=== PATIENT | male | born 1990 | race Two or more races ===

== ENCOUNTER 2016-05-28 01:05 | Emergency (ER) | payer BC, MEDICAID ==
[2016-05-28 01:10] VITALS: RESP 16; O2SAT 95
[2016-05-28] MEDS ORDERED: NS 1,000 ML IV ONE (01:32)
[2016-05-28] MEDS ORDERED: ONDANSETRON 4 MG/2 ML VIAL IVP ONE (01:35)
--- NOTE | 2016-05-28 01:35 | EDPHY ---
H & P Stated Complaint: N and V and D since this am Time Seen by Provider: 05/28/16 01:30 HPI/ROS: CHIEF COMPLAINT: Vomiting and diarrhea HISTORY OF PRESENT ILLNESS: The patient is a 25-year-old man who comes to the emergency department complaining of vomiting and diarrhea with blood tinged vomit. He has a history of GERD and peptic ulcer disease. He states that it improved when he is to take antacids but that he no longer does. His son was sick with a GI infection a few days ago. Today this patient began having vomiting and diarrhea. No fever, no abdominal pain. Classifies symptoms is moderate. REVIEW OF SYSTEMS: Constitutional: denies: chills, fever, recent illness, recent injury EENTM: denies: blurred vision, double vision, nose congestion Respiratory: denies: cough, shortness of breath Cardiac: denies: chest pain, irregular heart rate, lightheadedness, palpitations Gastrointestinal/Abdominal: See HPI Genitourinary: denies: dysuria, frequency, hematuria, pain Musculoskeletal: denies: joint pain, muscle pain Skin: denies: lesions, rash, jaundice, bruising Neurological: denies: headache, numbness, paresthesia, tingling, dizziness, weakness Hematologic/Lymphatic: denies: blood clots, easy bleeding, easy bruising Immunologic/allergic: denies: HIV/AIDS, transplant EXAM: GENERAL: Well-appearing, well-nourished and in no acute distress. HEAD: Atraumatic, normocephalic. EYES: Pupils equal round and reactive to light, extraocular movements intact, sclera anicteric, conjunctiva are normal. ENT: TMs normal, nares patent, oropharynx clear without exudates. Moist mucous membranes. NECK: Normal range of motion, supple without lymphadenopathy or JVD. LUNGS: Breath sounds clear to auscultation bilaterally and equal. No wheezes rales or rhonchi. HEART: Regular rate and rhythm without murmurs, rubs or gallops. ABDOMEN: Soft, nontender, normoactive bowel sounds. No guarding, no rebound. No masses appreciated. BACK: No CVA tenderness, no spinal tenderness, step-offs or deformities EXTREMITIES: Normal range of motion, no pitting or edema. No clubbing or cyanosis. NEUROLOGICAL: Cranial nerves II through XII grossly intact. Normal speech, normal gait. 5/5 strength, normal movement in all extremities, normal sensation PSYCH: Normal mood, normal affect. SKIN: Warm, dry, normal turgor, no visible rashes or lesions. Source: Patient Exam Limitations: No limitations - Personal History Current Tetanus/Diphtheria Vaccine: Yes Current Tetanus Diphtheria and Acellular Pertussis (TDAP): Yes Tetanus Vaccine Date: 2012 - Medical/Surgical History Hx Asthma: Yes Hx Chronic Respiratory Disease: No Hx Diabetes: No Hx Cardiac Disease: No Hx Renal Disease: No Hx Cirrhosis: No Hx Alcoholism: No Hx HIV/AIDS: No Other PMH: asthma, knee surgery when 17, tonsils and adenoids and tubes in ears when he was a baby, stomach ulcer - Family History Significant Family History: No pertinent family hx - Social History Smoking Status: Former smoker Alcohol Use: Sober Drug Use: None Constitutional: Initial Vital Signs Temperature (C) 36.8 C 05/28/16 01:08 Heart Rate 96 05/28/16 01:08 Respiratory Rate 16 05/28/16 01:08 Blood Pressure 137/85 H 05/28/16 01:08 O2 Sat (%) 95 05/28/16 01:08 O2 Delivery Mode Room Air Allergies/Adverse Reactions: No Known Allergies Allergy (Verified 05/28/15 10:42) Home Medications: Medication Instructions Recorded Famotidine [Pepcid 20 MG (OTC)] 20 mg PO BID #30 tab 05/28/16 Ondansetron Odt [Zofran Odt 4 mg 4 mg PO Q4 PRN #20 tab 05/28/16 (RX)] Medical Decision Making ED Course/Re-evaluation: 3:20 a.m. the patient is not having any further symptoms. I will discharge him with antiemetics. He understands and agrees with this plan. Differential Diagnosis: Partial list of the Differential diagnosis considered include but were not limited to; gastritis, food poisoning and although unlikely based on the history and physical exam, I also considered appendicitis, diverticulitis, peptic ulcer disease. I discussed these differential diagnoses and the plan with the patient as well as the usual and expected course. The patient understands that the diagnosis is provisional and that in medicine we are not always correct and that further workup is often warranted. Usual and customary warnings were given. All of the patient's questions were answered. The patient was instructed to return to the emergency department should the symptoms at all worsen or return, otherwise to followup with the physician as we discussed. - Data Points Medications Given: Discontinued Medications Sodium Chloride (Ns) 1,000 mls @ 0 mls/hr IV ONCE ONE PRN Reason: Wide Open Stop: 05/28/16 01:33 Last Admin: 05/28/16 01:33 Dose: 1,000 mls Departure - Departure Disposition: Home, Routine, Self-Care Clinical Impression: Peptic ulcer disease Vomiting Qualifiers: Vomiting type: unspecified Vomiting Intractability: non-intractable Nausea presence: with nausea Qualified Code(s): R11.2 - Nausea with vomiting, unspecified Diarrhea Qualifiers: Diarrhea type: unspecified type Qualified Code(s): R19.7 - Diarrhea, unspecified Condition: Good Instructions: Acute Nausea and Vomiting (ED), Peptic Ulcer (ED) Referrals: Saturnino Sawyer, [Medical Doctor] - As per Instructions Prescriptions: Famotidine [Pepcid 20 MG (OTC)] 20 mg PO BID #30 tab Ondansetron Odt [Zofran Odt 4 mg (RX)] 4 mg PO Q4 PRN #20 tab PRN Reason: Nausea & Vomiting
[2016-05-28] MEDS ORDERED: FAMOTIDINE 20 MG/NACL 50 ML IV ONE (01:36)
[2016-05-28] MEDS ORDERED: FAMOTIDINE 20 MG/2 ML SDV IVP ONE (02:14)
[2016-05-28] MEDS ORDERED: ONDANSETRON 4MG PREPACK#2 BTL TAKEHOME ONE (03:25)
[2016-05-28 03:39] VITALS: BP 106/71; PULSE 66; TEMP 98.1
== END 2016-05-28 03:39 | disposition home or self-care (01) ==
DX: R19.7 Diarrhea, unspecified (principal); K27.9 Peptic ulcer, site unspecified, unspecified as acute or chronic, without hemorrhage or perforation; R11.2 Nausea with vomiting, unspecified; J45.909 Unspecified asthma, uncomplicated; Z87.891 Personal history of nicotine dependence
CPT/HCPCS: 96374; J2405

== ENCOUNTER 2016-05-30 07:40 | Emergency (ER) | payer SELFPAY ==
--- NOTE | 2016-05-30 07:48 | EDPHY ---
H & P Time Seen by Provider: 05/30/16 07:48 HPI/ROS: CHIEF COMPLAINT: Abdominal pain and vomiting HISTORY OF PRESENT ILLNESS: Patient was here with similar symptoms 2 days ago. He says he felt a little bit better but then symptoms reoccurred yesterday and or much worse this morning at 5:00 a.m.. He describes epigastric pain which is severe and does not radiate. It is associated with black stools and vomiting coffee-grounds. His unable to eat or drink anything for the past 12- 24 hours. Worse with oral intake. REVIEW OF SYSTEMS: Eye: no change in vision ENT: no sore throat Cardiac: no chest pain or syncope Pulmonary: no cough or SOB Abdomen: HPI Musculoskeletal: no back pain Skin: no rash Neuro: no headache Constitutional: no fever : no urinary symptoms A comprehensive 10 point review of systems is otherwise negative aside from elements mentioned in the history of present illness. PAST MEDICAL HISTORY: [facility] emergency department visit dated 05/28/2016 personally reviewed. Presented with vomiting and diarrhea was treated symptomatically and discharged with Pepcid. Discharge summary from Dr. Eric dated 05/30/2015 personally reviewed. Acute GI bleed from erosive gastritis with small antral ulceration. Social history: Regular marijuana, no tobacco, does drink alcohol. General Appearance: Alert and conversant, cooperative. Eyes: No scleral icterus. ENT, Mouth: Dry mucous membranes Respiratory: Normal respiratory effort, breath sounds equal, lungs are clear to auscultation. Cardiovascular: Regular rate and rhythm. Gastrointestinal: Epigastric tenderness and some voluntary guarding but no rebound or involuntary guarding. No McBurney's point tenderness. Rectal exam shows dark stool sent for Hemoccult. Neurological: Alert and oriented x3. Normally conversant. Face symmetric, normal movement and sensation in all extremities. Skin: Warm and dry, no rashes. Musculoskeletal: No peripheral edema and no joint swelling. Psychiatric: Moderately anxious. Emergency Department course/MDM: Fentanyl 100 mcg IV and Zofran 4 mg IV. Normal saline 2 L for nausea and vomiting. I-STAT and CT scan to evaluate for perforation given severe pain and tenderness. Labs to include lipase and liver function tests as well as hemoglobin hematocrit and occult blood feces. 815: Creatinine 0.8, CT scanning discussed and consented with the patient. 905: Discussed negative CT results, still having nausea vomiting, doubt GI bleed at this point. Plan for IV Protonix, IV Haldol, GI cocktail. 1155: Feels better, no further vomiting, wants to go home, stable for discharge. Smoking Status: Former smoker Constitutional: Initial Vital Signs Temperature (C) 36.4 C 05/30/16 07:44 Heart Rate 68 05/30/16 07:44 Respiratory Rate 16 05/30/16 07:44 Blood Pressure 133/84 H 05/30/16 07:44 O2 Sat (%) 97 05/30/16 07:44 O2 Delivery Mode Room Air Allergies/Adverse Reactions: No Known Allergies Allergy (Verified 05/30/16 07:43) Home Medications: Medication Instructions Recorded Famotidine [Pepcid 20 MG (OTC)] 20 mg PO BID #30 tab 05/28/16 Ondansetron Odt [Zofran Odt 4 mg 4 mg PO Q4 PRN #20 tab 05/28/16 (RX)] Medical Decision Making - Diagnostics Imaging: Normal abdominal pelvic CT per Dr. Stokes at 8:55 a.m., personally reviewed and interpreted by myself as well. No evidence of perforation. Differential Diagnosis: Differential considered including but not limited to peptic ulcer disease, upper GI bleed, pancreatitis or hepatitis, intestinal or stomach perforation. - Data Points Laboratory Results: Laboratory Results 05/30/16 08:00 05/30/16 08:00 05/30/16 05/30/16 05/30/16 08:00 08:00 07:58 WBC 8.72 10^3/uL 10^3/uL (3.80-9.50) RBC 5.21 10^6/uL 10^6/uL (4.40-6.38) Hgb 16.3 g/dL g/dL (13.7-17.5) POC Hgb 17.3 gm/dL gm/dL (14.5-17.3) Hct 46.3 % % (40.0-51.0) POC Hct 51 % H % (42.8-50.6) MCV 88.9 fL fL (81.5-99.8) MCH 31.3 pg pg (27.9-34.1) MCHC 35.2 g/dL g/dL (32.4-36.7) RDW 12.3 % % (11.5-15.2) Plt Count 182 10^3/uL 10^3/uL (150-400) MPV 10.4 fL fL (8.7-11.7) Neut % (Auto) 86.4 % H % (39.3-74.2) Lymph % (Auto) 5.4 % L % (15.0-45.0) [place] % (Auto) 7.8 % % (4.5-13.0) Eos % (Auto) 0.0 % L % (0.6-7.6) Baso % (Auto) 0.2 % L % (0.3-1.7) Nucleat RBC Rel Count 0.0 % % (0.0-0.2) Absolute Neuts (auto) 7.53 10^3/uL H 10^3/uL (1.70-6.50) Absolute Lymphs (auto) 0.47 10^3/uL L 10^3/uL (1.00-3.00) Absolute Monos (auto) 0.68 10^3/uL 10^3/uL (0.30-0.80) Absolute Eos (auto) 0.00 10^3/uL L 10^3/uL (0.03-0.40) Absolute Basos (auto) 0.02 10^3/uL 10^3/uL (0.02-0.10) Absolute Nucleated RBC 0.00 10^3/uL 10^3/uL (0-0.01) Immature Gran % 0.2 % % (0.0-1.1) Immature Gran # 0.02 10^3/uL 10^3/uL (0.00-0.10) POC Sodium 141 mEq/L mEq/L (134-144) Sodium 141 mEq/L mEq/L (134-144) POC Potassium 3.1 mEq/L L mEq/L (3.3-5.0) Potassium 3.3 mEq/L L mEq/L (3.5-5.2) POC Chloride 100 mEq/L mEq/L (96-108) Chloride 102 mEq/L mEq/L (97-110) Carbon Dioxide 24 mEq/l mEq/l (22-31) Anion Gap 15 mEq/L mEq/L (8-16) POC BUN 24 mg/dL H mg/dL (7-23) BUN 23 mg/dL mg/dL (7-23) Creatinine 0.9 mg/dL mg/dL (0.7-1.3) POC Creatinine 0.8 mg/dL mg/dL (0.8-1.5) Estimated GFR > 60 Glucose 113 mg/dL H mg/dL (70-100) POC Glucose 115 mg/dL H mg/dL (70-100) Calcium 9.4 mg/dL mg/dL (8.5-10.4) Total Bilirubin 1.5 mg/dL H mg/dL (0.1-1.4) Conjugated Bilirubin 0.3 mg/dL mg/dL (0.0-0.5) Unconjugated Bilirubin 1.2 mg/dL H mg/dL (0.0-1.1) AST 33 IU/L IU/L (17-59) ALT 44 IU/L IU/L (21-72) Alkaline Phosphatase 110 IU/L IU/L (38-126) Total Protein 7.9 g/dL g/dL (6.3-8.2) Albumin 4.9 g/dL g/dL (3.5-5.0) Lipase 85.0 IU/L IU/L (23-300) Stool Occult Bld Scrn 05/30/16 07:57 WBC RBC Hgb POC Hgb Hct POC Hct MCV MCH MCHC RDW Plt Count MPV Neut % (Auto) Lymph % (Auto) [place] % (Auto) Eos % (Auto) Baso % (Auto) Nucleat RBC Rel Count Absolute Neuts (auto) Absolute Lymphs (auto) Absolute Monos (auto) Absolute Eos (auto) Absolute Basos (auto) Absolute Nucleated RBC Immature Gran % Immature Gran # POC Sodium Sodium POC Potassium Potassium POC Chloride Chloride Carbon Dioxide Anion Gap POC BUN BUN Creatinine POC Creatinine Estimated GFR Glucose POC Glucose Calcium Total Bilirubin Conjugated Bilirubin Unconjugated Bilirubin AST ALT Alkaline Phosphatase Total Protein Albumin Lipase Stool Occult Bld Scrn NEGATIVE (NEGATIVE) Medications Given: Discontinued Medications Al Hydroxide/Mg Hydroxide (Maalox Susp) 30 ml PO ONCE ONE Stop: 05/30/16 09:12 Last Admin: 05/30/16 09:55 Dose: 30 ml Fentanyl (Sublimaze) 100 mcg IVP EDNOW ONE Stop: 05/30/16 07:57 Last Admin: 05/30/16 08:08 Dose: 100 mcg Haloperidol Lactate (Haldol Injection) 2.5 mg IV EDNOW ONE Stop: 05/30/16 09:12 Last Admin: 05/30/16 09:48 Dose: 2.5 mg Hyoscyamine Sulfate (Levsin, Hyomax-Sl) 0.25 mg PO ONCE ONE Stop: 05/30/16 09:12 Last Admin: 05/30/16 09:55 Dose: 0.25 mg Sodium Chloride (Ns) 1,000 mls @ 0 mls/hr IV ONCE ONE PRN Reason: Wide Open Stop: 05/30/16 07:57 Last Admin: 05/30/16 08:07 Dose: 1,000 mls Famotidine/Sodium Chloride (Pepcid 20 Mg (Premix)) 50 mls @ 200 mls/hr IV EDNOW ONE Stop: 05/30/16 09:25 Last Admin: 05/30/16 09:48 Dose: 50 mls Lidocaine (Lidocaine 2% Viscous) 15 ml PO ONCE ONE Stop: 05/30/16 09:12 Last Admin: 05/30/16 09:55 Dose: 15 ml Ondansetron HCl (Zofran) 4 mg IVP EDNOW ONE Stop: 05/30/16 07:57 Last Admin: 05/30/16 08:07 Dose: 4 mg Point of Care Test Results: 05/30/16 07:58 POC Sodium 141 POC Potassium 3.1 L POC Chloride 100 POC BUN 24 H POC Creatinine 0.8 POC Glucose 115 H Departure - Departure Disposition: Home, Routine, Self-Care Clinical Impression: Nausea & vomiting Qualifiers: Vomiting type: unspecified Vomiting Intractability: non-intractable Qualified Code(s): R11.2 - Nausea with vomiting, unspecified Abdominal pain Qualifiers: Abdominal location: generalized Qualified Code(s): R10.84 - Generalized abdominal pain Condition: Good Instructions: Acute Abdominal Pain (ED) Referrals: Bryan Villalobos MD [Medical Doctor] - As per Instructions
[2016-05-30] MEDS ORDERED: fentaNYL 100 MCG/2 ML INJ IVP ONE (07:56)
[2016-05-30] MEDS ORDERED: NS 1,000 ML IV ONE (07:56)
[2016-05-30] MEDS ORDERED: ONDANSETRON 4 MG/2 ML VIAL IVP ONE (07:56)
[2016-05-30 08:11] LABS: % IMMATURE GRANULYOCYTES 0.2 % (0.0-1.1); ABSOLUTE IMMATURE GRANULOCYTES 0.02 10^3/uL (0.00-0.10); ADD DIFF? NO; ADD MORPH? NO; ADD SCAN? NO; ATYPICAL LYMPHOCYTE FLAG 0 (0-99); FRAGMENT RBC FLAG 0 (0-99); HEMATOCRIT 46.3 % (40.0-51.0); HEMOGLOBIN 16.3 g/dL (13.7-17.5); LEFT SHIFT FLG 0 (0-99); LIPEMIA HEMOLYSIS FLAG 90 (0-99); MEAN CELL HEMOGLOBIN 31.3 pg (27.9-34.1); MEAN CELL HEMOGLOBIN CONCENTR. 35.2 g/dL (32.4-36.7); MEAN CELL VOLUME 88.9 fL (81.5-99.8); MEAN PLATELET VOLUME 10.4 fL (8.7-11.7); PLATELET CLUMPS FLAG 20 (0-99); PLATELET COUNT 182 10^3/uL (150-400); RED BLOOD CELL COUNT 5.21 10^6/uL (4.40-6.38); RED CELL DISTRIBUTION WIDTH 12.3 % (11.5-15.2)
[2016-05-30] MEDS ORDERED: IOPAMIDOL (ISOVUE-300) 100 ML BTL IV ONE (08:18)
[2016-05-30 08:32] LABS: ALANINE AMINOTRANSFERASE 44 IU/L (21-72); ALBUMIN 4.9 g/dL (3.5-5.0); ALKALINE PHOSPHATASE 110 IU/L (38-126); ANION GAP 15 mEq/L (8-16); ASPARTATE AMINOTRANSFERASE 33 IU/L (17-59); BILIRUBIN,TOTAL 1.5 mg/dL (0.1-1.4); BILIRUBIN-CONJUGATED 0.3 mg/dL (0.0-0.5); BILIRUBIN-UNCONJUGATED 1.2 mg/dL (0.0-1.1); CALCIUM 9.4 mg/dL (8.5-10.4); CARBON DIOXIDE 24 mEq/l (22-31); CHLORIDE 102 mEq/L (97-110); CREATININE 0.9 mg/dL (0.7-1.3); GLOMERULAR FILTRATION RATE > 60; GLUCOSE 113 mg/dL (70-100); POTASSIUM 3.3 mEq/L (3.5-5.2); SODIUM 141 mEq/L (134-144); TOTAL PROTEIN 7.9 g/dL (6.3-8.2)
[2016-05-30] MEDS ORDERED: LIDOCAINE 2% VISCOUS 15 ML UDCUP PO ONE (09:11)
[2016-05-30] MEDS ORDERED: FAMOTIDINE 20 MG/NACL 50 ML IV ONE (09:11)
[2016-05-30] MEDS ORDERED: HALOPERIDOL LACT 5 MG/ML INJ IV ONE (09:11)
[2016-05-30] MEDS ORDERED: HYOSCYAMINE SULFATE 0.125 MG TAB PO ONE (09:11)
[2016-05-30] MEDS ORDERED: MAG HYDROX/AL HYDROX/SIMETH 30 ML UDCUP PO ONE (09:11)
[2016-05-30 11:27] VITALS: BP 112/61; PULSE 65; RESP 18; TEMP 98.6; O2SAT 94
== END 2016-05-30 12:10 | disposition home or self-care (01) ==
DX: R10.84 Generalized abdominal pain (principal); R11.2 Nausea with vomiting, unspecified; Z87.891 Personal history of nicotine dependence
CPT/HCPCS: 82947-QW; 96374; J2405; J3010; Q9967

== ENCOUNTER 2016-12-27 14:19 | Emergency (ER) | payer SELFPAY ==
[2016-12-27 14:26] VITALS: RESP 16; O2SAT 97
--- NOTE | 2016-12-27 16:44 | EDPHY ---
H & P Stated Complaint: ETOH/COCAINE DETOX N/V/D Time Seen by Provider: 12/27/16 16:44 HPI/ROS: HPI: This is a 26-year-old male who presents with Chief Complaint: ETOH/COCAINE DETOX N/V/D Location: Epigastric Quality: Nausea and vomiting Duration: Since Monday Signs and Symptoms: no fever, + nausea, + vomiting, no hematemesis, no blood in stool, no abdominal bloating, no diarrhea, no back pain, no urinary symptoms, no testicular/groin pain, no indigestion, no chest pain, no shortness of breath Timing: Sudden, intermittent episodes Severity: Moderate Context: Patient has a history alcoholic gastritis but is not taking his Pepcid as prescribed presents with complaints of continued nausea and vomiting 2 -3 times per day as well as inability to eat since Monday. Monday he broke up with his girlfriend and per him went on a [place] consisting of large amounts of liquor and inhalation of cocaine until late Monday night/early Monday morning. Patient reports that he has not eaten or drank anything since Monday. Describes his epigastric discomfort as sharp and burning, nonradiating in nature, 10/13. He has tried nothing for the symptoms. He reports he called the mental health clinic as well as his mother to discuss dealing with his break up. Denies suicidal ideation/homicidal ideation. Modifying Factors: None Comment: ROS: see HPI Constitutional: No fever, no chills, no weight loss Eyes: No blurred vision Respiratory: No shortness of breath, no cough Cardiovascular: No chest pain, no palpitations Gastrointestinal: + nausea, + vomiting, no diarrhea, no hematemesis, no blood in stool Genitourinary: No dysuria, no blood in urine Extremities: No myalgias, no edema Neurologic: No weakness, no numbness Skin: No rashes, no petechiae Hematologic: No bruising, no bleeding MEDICAL/SURGICAL/SOCIAL HISTORY: Medical history: Generally healthy. Does not take any regular medications. Surgical history: Denies Social history: ROS: see HPI Constitutional: No fever, no chills, no weight loss Eyes: No blurred vision Respiratory: No shortness of breath, no cough Cardiovascular: No chest pain Gastrointestinal: No nausea, no vomiting, no diarrhea Genitourinary: No dysuria Extremities: No myalgias Neurologic: No weakness, no numbness Skin: No rashes Hematologic: No bruising, no bleeding MEDICAL/SURGICAL/SOCIAL HISTORY: Medical history: Alcoholism, gastritis Surgical history: Tonsillectomy, adenoidectomy, right knee surgery Social history: Employed CONSTITUTIONAL: Young adult male, pleasant cooperative, awake and alert, no obvious distress HEENT: Atraumatic and normocephalic, PERRL, EOMI. Tympanic membranes clear. Oropharynx clear, no exudate and moist pink mucosa. Airway patent. No lymphadenopathy. No meningismus. Cardiovascular: Normal S1/S2, regular rate, regular rhythm, without murmur rub or gallop. PULMONARY/CHEST: Symmetrical and nontender. Clear to auscultation bilaterally. Good air movement. No accessory muscle usage. ABDOMEN: Soft, nondistended, moderate epigastric tenderness, no rebound, no guarding, no peritoneal signs, no masses or organomegaly. No CVAT. Hyperactive bowel sounds x4 quadrants EXTREMITIES: 2/2 pulses, no deformities, no clubbing, no cyanosis or edema. NEUROLOGICAL: no focal neuro deficits. GCS 15. SKIN: Warm and dry, no erythema. no rash. Good capillary refill. Source: Patient Exam Limitations: No limitations - Personal History Current Tetanus/Diphtheria Vaccine: Yes Tetanus Vaccine Date: 2012 - Medical/Surgical History Hx Asthma: Yes Hx Chronic Respiratory Disease: No Hx Diabetes: No Hx Cardiac Disease: No Hx Renal Disease: No Hx Cirrhosis: No Hx Alcoholism: No Hx HIV/AIDS: No Other PMH: asthma, knee surgery when 17, tonsils and adenoids and tubes in ears when he was a baby, stomach ulcer - Social History Smoking Status: Former smoker Constitutional: Initial Vital Signs Temperature (C) 36.5 C 12/27/16 14:24 Heart Rate 86 12/27/16 14:24 Respiratory Rate 16 12/27/16 14:24 Blood Pressure 128/109 H 12/27/16 14:24 O2 Sat (%) 97 12/27/16 14:24 O2 Delivery Mode Room Air Allergies/Adverse Reactions: No Known Allergies Allergy (Verified 12/27/16 14:24) Home Medications: Medication Instructions Recorded Famotidine [Pepcid 20 MG (OTC)] 20 mg PO BID #30 tab 05/28/16 Ondansetron Odt [Zofran Odt 4 mg 4 mg PO Q4 PRN #20 tab 05/28/16 (RX)] Ondansetron HCl [Zofran] 4 mg PO Q6 PRN #12 tablet 12/27/16 Medical Decision Making ED Course/Re-evaluation: Labs, urinalysis, urine drug screen, IV fluids, IV and oral medications ordered Given 2 L normal saline, IV famotidine, IV Zofran and GI cocktail Vital signs reviewed upon arrival; afebrile and no tachycardia. Labs reviewed and grossly unremarkable No signs of acute kidney injury/dehydration/UTI/significant anemia/electrolyte imbalance/seizures 1850: Reassessed patient, Abdomen soft and benign with moderate relief of symptoms. Further imaging at this point is not indicated. Passed p.o. trial. Requesting Zofran script. Has Pepcid script at home already. Differential Diagnosis: Abdominal pain including but not limited to appendicitis, cholecystitis, gastritis and urinary tract infection. - Data Points Laboratory Results: Laboratory Results 12/27/16 17:10 12/27/16 17:10 12/27/16 12/27/16 12/27/16 18:15 17:10 17:10 WBC 11.83 10^3/uL H 10^3/uL (3.80-9.50) RBC 5.49 10^6/uL 10^6/uL (4.40-6.38) Hgb 17.8 g/dL H g/dL (13.7-17.5) Hct 49.4 % % (40.0-51.0) MCV 90.0 fL fL (81.5-99.8) MCH 32.4 pg pg (27.9-34.1) MCHC 36.0 g/dL g/dL (32.4-36.7) RDW 12.4 % % (11.5-15.2) Plt Count 177 10^3/uL 10^3/uL (150-400) MPV 10.0 fL fL (8.7-11.7) Neut % (Auto) 80.6 % H % (39.3-74.2) Lymph % (Auto) 10.7 % L % (15.0-45.0) [place] % (Auto) 8.3 % % (4.5-13.0) Eos % (Auto) 0.0 % L % (0.6-7.6) Baso % (Auto) 0.2 % L % (0.3-1.7) Nucleat RBC Rel Count 0.0 % % (0.0-0.2) Absolute Neuts (auto) 9.55 10^3/uL H 10^3/uL (1.70-6.50) Absolute Lymphs (auto) 1.26 10^3/uL 10^3/uL (1.00-3.00) Absolute Monos (auto) 0.98 10^3/uL H 10^3/uL (0.30-0.80) Absolute Eos (auto) 0.00 10^3/uL L 10^3/uL (0.03-0.40) Absolute Basos (auto) 0.02 10^3/uL 10^3/uL (0.02-0.10) Absolute Nucleated RBC 0.00 10^3/uL 10^3/uL (0-0.01) Immature Gran % 0.2 % % (0.0-1.1) Immature Gran # 0.02 10^3/uL 10^3/uL (0.00-0.10) Sodium 139 mEq/L mEq/L (134-144) Potassium 4.4 mEq/L mEq/L (3.5-5.2) Chloride 89 mEq/L L mEq/L (97-110) Carbon Dioxide 28 mEq/l mEq/l (22-31) Anion Gap 22 mEq/L H mEq/L (8-16) BUN 39 mg/dL H mg/dL (7-23) Creatinine 1.1 mg/dL mg/dL (0.7-1.3) Estimated GFR > 60 Glucose 116 mg/dL H mg/dL (70-100) Calcium 10.0 mg/dL mg/dL (8.5-10.4) Total Bilirubin 1.2 mg/dL mg/dL (0.1-1.4) Conjugated Bilirubin 0.2 mg/dL mg/dL (0.0-0.5) Unconjugated Bilirubin 1.0 mg/dL mg/dL (0.0-1.1) AST 45 IU/L IU/L (17-59) ALT 38 IU/L IU/L (21-72) Alkaline Phosphatase 130 IU/L H IU/L (38-126) Total Protein 8.2 g/dL g/dL (6.3-8.2) Albumin 4.9 g/dL g/dL (3.5-5.0) Lipase 248 IU/L IU/L (23-300) Urine Color YELLOW Urine Appearance CLEAR Urine pH 6.0 (5.0-7.5) Ur Specific [place] 1.029 (1.002-1.030) Urine Protein 2+ H (NEGATIVE) Urine Ketones 2+ H (NEGATIVE) Urine Blood 1+ H (NEGATIVE) Urine Nitrate NEGATIVE (NEGATIVE) Urine Bilirubin NEGATIVE (NEGATIVE) Urine Urobilinogen NEGATIVE EU EU (0.2-1.0) Ur Leukocyte Esterase NEGATIVE (NEGATIVE) Urine RBC 3-5 /hpf H /hpf (0-3) Urine WBC 10-15 /hpf H /hpf (0-3) Ur Epithelial Cells TRACE /lpf /lpf (NONE-1+) Urine Mucus TRACE /lpf /lpf (NONE-1+) Urine Glucose NEGATIVE (NEGATIVE) Urine Opiates Screen NEGATIVE (NEGATIVE) Urine Barbiturates NEGATIVE (NEGATIVE) Ur Phencyclidine Scrn NEGATIVE (NEGATIVE) Ur Amphetamine Screen NEGATIVE (NEGATIVE) U Benzodiazepines Scrn NEGATIVE (NEGATIVE) Urine Cocaine Screen NON-NEGATIVE H (NEGATIVE) U Marijuana (THC) Screen NON-NEGATIVE H (NEGATIVE) Medications Given: Discontinued Medications Al Hydroxide/Mg Hydroxide (Maalox Susp) 30 ml PO ONCE ONE Stop: 12/27/16 16:50 Last Admin: 12/27/16 17:05 Dose: 30 ml Hyoscyamine Sulfate (Levsin, Hyomax-Sl) 0.25 mg PO ONCE ONE Stop: 12/27/16 16:50 Last Admin: 12/27/16 17:15 Dose: 0.25 mg Sodium Chloride (Ns) 1,000 mls @ 0 mls/hr IV EDNOW ONE; Wide Open PRN Reason: Protocol Stop: 12/27/16 16:49 Last Admin: 12/27/16 17:15 Dose: 1,000 mls Sodium Chloride (Ns) 1,000 mls @ 0 mls/hr IV EDNOW ONE; Wide Open PRN Reason: Protocol Stop: 12/27/16 16:49 Last Admin: 12/27/16 17:16 Dose: 1,000 mls Famotidine/Sodium Chloride (Pepcid 20 Mg (Premix)) 50 mls @ 200 mls/hr IV EDNOW ONE Stop: 12/27/16 17:02 Last Admin: 12/27/16 17:15 Dose: 50 mls Lidocaine (Lidocaine 2% Viscous) 15 ml PO ONCE ONE Stop: 12/27/16 16:50 Last Admin: 12/27/16 17:05 Dose: 15 ml Ondansetron HCl (Zofran) 4 mg IVP EDNOW ONE Stop: 12/27/16 16:49 Last Admin: 12/27/16 17:16 Dose: 4 mg Departure - Departure Disposition: Home, Routine, Self-Care Clinical Impression: Gastritis Qualifiers: Gastritis type: alcoholic Chronicity: acute Gastritis bleeding: without bleeding Qualified Code(s): K29.20 - Alcoholic gastritis without bleeding Condition: Good Instructions: Gastritis (ED) Additional Instructions: Please avoid alcohol and NSAIDs. Take Pepcid as directed. Use Zofran every 4-6 hours as needed for nausea and vomiting. Eat a bland diet for the next 24 hours. Follow up with Gastroenterology in 7-10 days for further evaluation and determine candidacy for EGD. Referrals: Remi Lott MD [Medical Doctor] - As per Instructions Prescriptions: Ondansetron HCl [Zofran] 4 mg PO Q6 PRN #12 tablet PRN Reason: Nausea/Vomiting, Use 1st
[2016-12-27] MEDS ORDERED: FAMOTIDINE 20 MG/NACL 50 ML IV ONE (16:48)
[2016-12-27] MEDS ORDERED: ONDANSETRON 4 MG/2 ML VIAL IVP ONE (16:48)
[2016-12-27] MEDS ORDERED: NS 1,000 ML IV ONE ×2 (16:48)
[2016-12-27] MEDS ORDERED: HYOSCYAMINE SULFATE 0.125 MG TAB PO ONE (16:49)
[2016-12-27] MEDS ORDERED: LIDOCAINE 2% VISCOUS 15 ML UDCUP PO ONE (16:49)
[2016-12-27] MEDS ORDERED: MAG HYDROX/AL HYDROX/SIMETH 30 ML UDCUP PO ONE (16:49)
[2016-12-27] MEDS ORDERED: HYOSCYAMINE SULFATE 0.125 MG TAB ONE (17:08)
[2016-12-27 17:19] LABS: % IMMATURE GRANULYOCYTES 0.2 % (0.0-1.1); ABSOLUTE IMMATURE GRANULOCYTES 0.02 10^3/uL (0.00-0.10); ADD DIFF? NO; ADD MORPH? NO; ADD SCAN? NO; ATYPICAL LYMPHOCYTE FLAG 0 (0-99); FRAGMENT RBC FLAG 0 (0-99); HEMATOCRIT 49.4 % (40.0-51.0); HEMOGLOBIN 17.8 g/dL (13.7-17.5); LEFT SHIFT FLG 0 (0-99); LIPEMIA HEMOLYSIS FLAG 90 (0-99); MEAN CELL HEMOGLOBIN 32.4 pg (27.9-34.1); PLATELET CLUMPS FLAG 0 (0-99); PLATELET COUNT 177 10^3/uL (150-400); RED BLOOD CELL COUNT 5.49 10^6/uL (4.40-6.38); RED CELL DISTRIBUTION WIDTH 12.4 % (11.5-15.2)
[2016-12-27 17:36] LABS: ALANINE AMINOTRANSFERASE 38 IU/L (21-72); ALBUMIN 4.9 g/dL (3.5-5.0); ALKALINE PHOSPHATASE 130 IU/L (38-126); ANION GAP 22 mEq/L (8-16); ASPARTATE AMINOTRANSFERASE 45 IU/L (17-59); BILIRUBIN,TOTAL 1.2 mg/dL (0.1-1.4); BILIRUBIN-CONJUGATED 0.2 mg/dL (0.0-0.5); CARBON DIOXIDE 28 mEq/l (22-31); CHLORIDE 89 mEq/L (97-110); CREATININE 1.1 mg/dL (0.7-1.3); GLOMERULAR FILTRATION RATE > 60; GLUCOSE 116 mg/dL (70-100); POTASSIUM 4.4 mEq/L (3.5-5.2); SODIUM 139 mEq/L (134-144); TOTAL PROTEIN 8.2 g/dL (6.3-8.2)
[2016-12-27 18:31] LABS: COLOR YELLOW; LEUKOCYTE ESTERASE,URINE NEGATIVE (NEGATIVE); NITRITE,URINE NEGATIVE (NEGATIVE)
[2016-12-27 18:45] LABS: MUCUS TRACE /lpf (NONE-1+)
[2016-12-27 19:13] VITALS: BP 106/64; PULSE 74; TEMP 98.6
== END 2016-12-27 19:11 | disposition home or self-care (01) ==
DX: K29.20 Alcoholic gastritis without bleeding (principal); J45.909 Unspecified asthma, uncomplicated; E86.9 Volume depletion, unspecified; Z87.891 Personal history of nicotine dependence
CPT/HCPCS: 80305; 96374; J2405

== ENCOUNTER 2016-12-29 10:28 | Emergency (ER) | payer SELFPAY ==
[2016-12-29 10:39] VITALS: TEMP 97.5; O2SAT 98
[2016-12-29] MEDS ORDERED: NS 1,000 ML IV ONE (10:56)
[2016-12-29] MEDS ORDERED: ONDANSETRON 4 MG/2 ML VIAL IVP ONE (10:56)
--- NOTE | 2016-12-29 10:57 | EDPHY ---
HPI/HX/ROS/PE/MDM Narrative: CHIEF COMPLAINT: Epigastric pain ,nausea HPI: The patient is a 26 y/o male with a history of alcoholic gastritis and ulcers who returns for the second time this week with nausea and epigastric pain. He was evaluated here two days ago for nausea and vomiting while detoxing from EtOH and cocaine after binging one week ago. His epigastric pain feels worse today and goes "up my esophagus." He is using all the prescribed and OTC medications recommended during hospitalizations from prior episodes. He has been able to eat only small quantities and reports his symptoms worsened significantly after eating a strawberry this morning. He denies alcohol or drug use since last week. No abdominal surgeries. REVIEW OF SYSTEMS: Aside from elements discussed in the HPI, a comprehensive 10-point review of systems was reviewed and is negative. PMH: Ulcers, alcoholic gastritis, alcoholism, tonsillectomy, right knee surgery SOCIAL HISTORY: Employed. Girlfriend just broke up with him last week, which precipitated his alcohol binge Prior medical records reviewed including ED visit 12/27/16 for similar symptoms. PHYSICAL EXAM: General:Patient is alert, appears uncomfortable. ENT:Eyes are normal to inspection. ENT inspection normal. Neck: Normal inspection. Full range of motion. Respiratory:No respiratory distress. Breath sounds normal bilaterally. Cardiovascular: Regular rate and rhythm. Strong peripheral pulses. Normal cap refill. Abdomen:Difficult exam. Seems to have epigastric tenderness to palpation. There are no peritoneal signs. Back: Normal to inspection. No tenderness to palpation. Skin: Normal color. No rash. Warm and dry. Extremities: Normal appearance. Full range of motion. Neuro: Oriented x3. Normal motor function. Normal sensory function. ED Course: Plan for IV and symptom management. 4mg IV Zofran, 20mg IV Pepcid, 1L IV NS, and PO GI cocktail administered. Reassessed patient and discussed work up. Labs unremarkable. He feels improved after symptomatic treatment. Abdomen is benign. He will be discharged home with a script for Zofran and referral to GI and PCP for follow up. Return precautions discussed. He is comfortable with this plan. Given his response to treatment and recent alcohol binge, I strongly suspect this represents alcoholic gastritis, rather than pancreatitis, cholecystitis or GI bleed. - Data Points Laboratory Results: Laboratory Results 12/29/16 10:10 12/29/16 10:10 12/29/16 12/29/16 10:10 10:10 WBC 7.69 10^3/uL 10^3/uL (3.80-9.50) RBC 5.05 10^6/uL 10^6/uL (4.40-6.38) Hgb 16.5 g/dL g/dL (13.7-17.5) Hct 45.7 % % (40.0-51.0) MCV 90.5 fL fL (81.5-99.8) MCH 32.7 pg pg (27.9-34.1) MCHC 36.1 g/dL g/dL (32.4-36.7) RDW 12.0 % % (11.5-15.2) Plt Count 151 10^3/uL 10^3/uL (150-400) MPV 10.4 fL fL (8.7-11.7) Neut % (Auto) 79.8 % H % (39.3-74.2) Lymph % (Auto) 12.6 % L % (15.0-45.0) [place] % (Auto) 6.9 % % (4.5-13.0) Eos % (Auto) 0.1 % L % (0.6-7.6) Baso % (Auto) 0.3 % % (0.3-1.7) Nucleat RBC Rel Count 0.0 % % (0.0-0.2) Absolute Neuts (auto) 6.14 10^3/uL 10^3/uL (1.70-6.50) Absolute Lymphs (auto) 0.97 10^3/uL L 10^3/uL (1.00-3.00) Absolute Monos (auto) 0.53 10^3/uL 10^3/uL (0.30-0.80) Absolute Eos (auto) 0.01 10^3/uL L 10^3/uL (0.03-0.40) Absolute Basos (auto) 0.02 10^3/uL 10^3/uL (0.02-0.10) Absolute Nucleated RBC 0.00 10^3/uL 10^3/uL (0-0.01) Immature Gran % 0.3 % % (0.0-1.1) Immature Gran # 0.02 10^3/uL 10^3/uL (0.00-0.10) Sodium 138 mEq/L mEq/L (134-144) Potassium 3.5 mEq/L mEq/L (3.5-5.2) Chloride 97 mEq/L mEq/L (97-110) Carbon Dioxide 23 mEq/l mEq/l (22-31) Anion Gap 18 mEq/L H mEq/L (8-16) BUN 25 mg/dL H mg/dL (7-23) Creatinine 1.0 mg/dL mg/dL (0.7-1.3) Estimated GFR > 60 Glucose 93 mg/dL mg/dL (70-100) Calcium 9.5 mg/dL mg/dL (8.5-10.4) Lipase 205 IU/L IU/L (23-300) Medications Given: Discontinued Medications Al Hydroxide/Mg Hydroxide (Maalox Susp) 30 ml PO ONCE ONE Stop: 12/29/16 11:09 Last Admin: 12/29/16 11:11 Dose: 30 ml Hyoscyamine Sulfate (Levsin, Hyomax-Sl) 0.25 mg PO ONCE ONE Stop: 12/29/16 11:09 Last Admin: 12/29/16 11:11 Dose: 0.25 mg Sodium Chloride (Ns) 1,000 mls @ 0 mls/hr IV ONCE ONE PRN Reason: Wide Open Stop: 12/29/16 10:57 Last Admin: 12/29/16 11:00 Dose: 1,000 mls Famotidine/Sodium Chloride (Pepcid 20 Mg (Premix)) 50 mls @ 200 mls/hr IV EDNOW ONE Stop: 12/29/16 11:21 Last Admin: 12/29/16 11:11 Dose: 50 mls Lidocaine (Lidocaine 2% Viscous) 15 ml PO ONCE ONE Stop: 12/29/16 11:09 Last Admin: 12/29/16 11:11 Dose: 15 ml Ondansetron HCl (Zofran) 4 mg IVP EDNOW ONE Stop: 12/29/16 10:57 Last Admin: 12/29/16 10:59 Dose: 4 mg General Time Seen by Provider: 12/29/16 10:52 Initial Vital Signs: Initial Vital Signs Temperature (C) 36.4 C 12/29/16 10:36 Heart Rate 73 12/29/16 10:36 Respiratory Rate 16 12/29/16 10:36 Blood Pressure 136/86 H 12/29/16 10:36 O2 Sat (%) 98 12/29/16 10:36 O2 Delivery Mode Room Air Allergies/Adverse Reactions: No Known Allergies Allergy (Verified 12/27/16 14:24) Home Medications: Medication Instructions Recorded Famotidine [Pepcid 20 MG (OTC)] 20 mg PO BID #30 tab 05/28/16 Ondansetron Odt [Zofran Odt 4 mg 4 mg PO Q4 PRN #20 tab 05/28/16 (RX)] Ondansetron HCl [Zofran] 4 mg PO Q6 PRN #12 tablet 12/27/16 Ondansetron Odt [Zofran Odt] 4 mg PO Q4PRN PRN #10 tab 12/29/16 Departure - Departure Disposition: Home, Routine, Self-Care Clinical Impression: Vomiting Condition: Good Instructions: Ondansetron (By mouth), Acute Nausea and Vomiting (ED) Additional Instructions: 1. Take Zofran as prescribed as needed for nausea and vomiting. 2. Follow up with a rework machine operator or your primary care provider for unimproved symptoms by Monday. 3. Increase fluid intake. 4. Return to the ED for worsening of condition. Referrals: [facility],. [Clinic] - As per Instructions Remi Lott MD [Medical Doctor] - As per Instructions Prescriptions: Ondansetron Odt [Zofran Odt] 4 mg PO Q4PRN PRN #10 tab PRN Reason: Nausea Report Scribed for: Ethan Arredondo Report Scribed by: Essence Ba Date of Report: 12/29/16 Time of Report: 10:57 Physician Review and Approval Statement: Portions of this note were transcribed by an ED scribe. I personally performed the history, physical exam, and medical decision making; and confirm the accuracy of the information in the transcribed note.
[2016-12-29] MEDS ORDERED: FAMOTIDINE 20 MG/NACL 50 ML IV ONE (11:07)
[2016-12-29] MEDS ORDERED: HYOSCYAMINE SULFATE 0.125 MG TAB PO ONE (11:08)
[2016-12-29] MEDS ORDERED: LIDOCAINE 2% VISCOUS 15 ML UDCUP PO ONE (11:08)
[2016-12-29] MEDS ORDERED: MAG HYDROX/AL HYDROX/SIMETH 30 ML UDCUP PO ONE (11:08)
[2016-12-29 11:40] LABS: PLATELET COUNT 151 10^3/uL (150-400)
[2016-12-29 14:49] VITALS: BP 98/57; PULSE 74; RESP 18
== END 2016-12-29 14:49 | disposition home or self-care (01) ==
DX: R11.10 Vomiting, unspecified (principal)
CPT/HCPCS: 96365; J2405

== ENCOUNTER 2017-07-03 13:35 | Emergency (ER) | payer SELFPAY ==
--- NOTE | 2017-07-03 14:00 | EDPHY ---
H & P Stated Complaint: PT C/O ABD CRAMPING, n/v SINCE SAT, dark stool Time Seen by Provider: 07/03/17 13:59 HPI/ROS: HPI: This is a 26-year-old male who presents with Chief Complaint: PT C/O ABD CRAMPING, n/v SINCE SAT, dark stool Location: Abdomen Quality: Cramping, nausea, vomiting Duration: 2 days Signs and Symptoms: no fever, + nausea, no vomiting, no hematemesis, no blood in stool, no abdominal bloating, no diarrhea, no back pain, no urinary symptoms , no testicular/groin pain, no indigestion, no chest pain, no shortness of breath Timing: today Severity:10/13 Context: Patient has a history of alcoholism, alcoholic gastritis, and peptic ulcer disease presents with complaints of worsening over the last 2-3 days of nausea abdominal cramping. Today he woke up, with epigastric and left upper quadrant pain that was worse than usual, nonradiating, cramping and severe in nature. Patient reports that he has not drink alcohol in 1 week. He stopped taking the "stomach ulcer" after his prescription ran out in December of last year. He does not have health insurance, primary care provider and never followed up with Gastroenterology. He smokes marijuana several times per week. He does take ibuprofen almost daily for history of right knee reconstructive surgery and chronic right knee pain. He denies actually vomited today but reports dry heaves. Modifying Factors: None Comment: ROS: see HPI Constitutional: No fever, no chills, no weight loss Eyes: No blurred vision Respiratory: No shortness of breath, no cough Cardiovascular: No chest pain, no palpitations Gastrointestinal: + nausea, no vomiting, no diarrhea, no hematemesis, no blood in stool Genitourinary: No dysuria, no blood in urine Extremities: No myalgias, no edema Neurologic: No weakness, no numbness Skin: No rashes, no petechiae Hematologic: No bruising, no bleeding MEDICAL/SURGICAL/SOCIAL HISTORY: Medical history: Alcoholism, alcoholic gastritis and ulcers, asthma Surgical history: knee surgery when 17, tonsillectomy, adenoidectomy, bilateral tympanostomy tubes Social history: Employed. Smokes marijuana. Family history noncontributory. CONSTITUTIONAL: Polite and cooperative, nontoxic-appearing young adult male, awake and alert, no obvious distress HEENT: Atraumatic and normocephalic, PERRL, EOMI. Nares patent; no rhinorrhea; no nasal mucosal edema. Tympanic membranes clear. Oropharynx clear, no exudate and moist pink mucosa. Airway patent. No lymphadenopathy. No meningismus. Cardiovascular: Normal S1/S2, regular rate, regular rhythm, without murmur rub or gallop. PULMONARY/CHEST: Symmetrical and nontender. Clear to auscultation bilaterally. Good air movement. No accessory muscle usage. ABDOMEN: Soft, nondistended, epigastric and left upper quadrant tenderness, no rebound, no guarding, no peritoneal signs, no masses or organomegaly. No CVAT. RECTAL: Good sphincter tone, light brown stool in vault, no external hemorrhoids , no fissures, no palpable masses, guaiac negative EXTREMITIES: 2/2 pulses, strength 5/5, no deformities, no clubbing, no cyanosis or edema. NEUROLOGICAL: no focal neuro deficits. GCS 15. SKIN: Warm and dry, no erythema. no rash. Good capillary refill. Source: Patient Exam Limitations: No limitations - Personal History Tetanus Vaccine Date: 2012 - Medical/Surgical History Hx Asthma: Yes Hx Chronic Respiratory Disease: No Hx Diabetes: No Hx Cardiac Disease: No Hx Renal Disease: No Hx Cirrhosis: No Hx Alcoholism: No Hx HIV/AIDS: No Hx Splenectomy or Spleen Trauma: No Other PMH: asthma, knee surgery when 17, tonsils and adenoids and tubes in ears when he was a baby, stomach ulcer - Social History Smoking Status: Former smoker Constitutional: Initial Vital Signs Temperature (C) 36.6 C 07/03/17 13:47 Heart Rate 69 07/03/17 13:47 Respiratory Rate 18 07/03/17 13:47 Blood Pressure 120/98 H 07/03/17 13:47 O2 Sat (%) 98 07/03/17 13:47 O2 Delivery Mode Room Air Allergies/Adverse Reactions: No Known Allergies Allergy (Verified 12/27/16 14:24) Home Medications: Medication Instructions Recorded Famotidine [Pepcid 20 MG (*)] 20 mg PO BID #14 tab 07/03/17 Ondansetron Odt [Zofran Odt 4 mg 4 mg PO Q4 PRN #12 tab 07/03/17 (*)] Sucralfate [Carafate 1 GM (*)] 1 gm PO ACHS 7 Days tab 07/03/17 Medical Decision Making - Diagnostics Imaging Results: Imaging Impressions Abdomen CT 07/03/17 14:09 Impression: Mild mesenteric edema uncertain etiology. Results called and discussed with YG Gramajo at 07/03/2017 14:56 General information for patients regarding this examination can be found at [email or web address]. If you have questions or comments about this report, please contact me at [phone] (hospital) or [phone] (cell). ED Course/Re-evaluation: Labs, IV fluids, IV medications, oral medications, CT abdomen and pelvis scan ordered 1412: Given 1 L normal saline, IV Pepcid, IV Zofran, GI cocktail 1448: Labs reviewed; No signs of anemia/CASSIDY/elevated LFTs/electrolyte imbalance /coagulopathy/pancreatitis. Mild leukocytosis noted without left shift. Guaiac negative 1500: Called by radiologist Dr. Fernandez who advised that CT abdomen and pelvis scan shows no signs of obstruction, pancreatitis, free air indicating perforation. 1515: Reassessed patient. Reports no nausea or vomiting since being in the emergency room and relief of symptoms with medication. Repeat abdominal exam is soft and nontender. Passed p.o. Trial prior to discharge. Patient asking to be discharged home. Given prescriptions for Pepcid, Zofran and 7 days of Carafate. Instructed to follow up with Gastroenterology and establish care with primary care. This patient was seen under the supervision of my secondary supervising physician. I evaluated care for this patient independently. Differential Diagnosis: Abdominal pain including but not limited to appendicitis, cholecystitis, gastritis and urinary tract infection. - Data Points Laboratory Results: Laboratory Results 07/03/17 14:02 07/03/17 14:02 07/03/17 07/03/17 14:02 14:02 WBC 10.73 10^3/uL H 10^3/uL (3.80-9.50) RBC 5.32 10^6/uL 10^6/uL (4.40-6.38) Hgb 16.5 g/dL g/dL (13.7-17.5) Hct 45.6 % % (40.0-51.0) MCV 85.7 fL fL (81.5-99.8) MCH 31.0 pg pg (27.9-34.1) MCHC 36.2 g/dL g/dL (32.4-36.7) RDW 12.9 % % (11.5-15.2) Plt Count 200 10^3/uL 10^3/uL (150-400) MPV 10.5 fL fL (8.7-11.7) Neut % (Auto) 72.5 % % (39.3-74.2) Lymph % (Auto) 18.6 % % (15.0-45.0) [place] % (Auto) 7.9 % % (4.5-13.0) Eos % (Auto) 0.2 % L % (0.6-7.6) Baso % (Auto) 0.4 % % (0.3-1.7) Nucleat RBC Rel Count 0.0 % % (0.0-0.2) Absolute Neuts (auto) 7.78 10^3/uL H 10^3/uL (1.70-6.50) Absolute Lymphs (auto) 2.00 10^3/uL 10^3/uL (1.00-3.00) Absolute Monos (auto) 0.85 10^3/uL H 10^3/uL (0.30-0.80) Absolute Eos (auto) 0.02 10^3/uL L 10^3/uL (0.03-0.40) Absolute Basos (auto) 0.04 10^3/uL 10^3/uL (0.02-0.10) Absolute Nucleated RBC 0.00 10^3/uL 10^3/uL (0-0.01) Immature Gran % 0.4 % % (0.0-1.1) Immature Gran # 0.04 10^3/uL 10^3/uL (0.00-0.10) Sodium 136 mEq/L mEq/L (135-145) Potassium 3.5 mEq/L mEq/L (3.5-5.2) Chloride 99 mEq/L mEq/L (97-110) Carbon Dioxide 21 mEq/l L mEq/l (22-31) Anion Gap 16 mEq/L mEq/L (8-16) BUN 26 mg/dL H mg/dL (7-23) Creatinine 0.9 mg/dL mg/dL (0.7-1.3) Estimated GFR > 60 Glucose 115 mg/dL H mg/dL (70-100) Calcium 9.6 mg/dL mg/dL (8.5-10.4) Total Bilirubin 1.1 mg/dL mg/dL (0.1-1.4) Conjugated Bilirubin 0.4 mg/dL mg/dL (0.0-0.5) Unconjugated Bilirubin 0.7 mg/dL mg/dL (0.0-1.1) AST 28 IU/L IU/L (17-59) ALT 34 IU/L IU/L (21-72) Alkaline Phosphatase 113 IU/L IU/L (38-126) Total Protein 7.9 g/dL g/dL (6.3-8.2) Albumin 4.8 g/dL g/dL (3.5-5.0) Lipase 207 IU/L IU/L (23-300) Medications Given: Discontinued Medications Al Hydroxide/Mg Hydroxide (Maalox Susp) 30 ml PO ONCE ONE Stop: 07/03/17 14:03 Last Admin: 07/03/17 14:11 Dose: 30 ml Hyoscyamine Sulfate (Levsin, Hyomax-Sl) 0.25 mg PO ONCE ONE Stop: 07/03/17 14:03 Last Admin: 07/03/17 14:11 Dose: 0.25 mg Sodium Chloride (Ns) 1,000 mls @ 0 mls/hr IV EDNOW ONE; Wide Open PRN Reason: Protocol Stop: 07/03/17 14:03 Last Admin: 07/03/17 14:05 Dose: 1,000 mls Famotidine/Sodium Chloride (Pepcid 20 Mg (Premix)) 50 mls @ 200 mls/hr IV EDNOW ONE Stop: 07/03/17 14:16 Last Admin: 07/03/17 14:11 Dose: 50 mls Lidocaine (Lidocaine 2% Viscous) 15 ml PO ONCE ONE Stop: 07/03/17 14:03 Last Admin: 07/03/17 14:11 Dose: 15 ml Ondansetron HCl (Zofran) 4 mg IVP EDNOW ONE Stop: 07/03/17 14:03 Last Admin: 07/03/17 14:05 Dose: 4 mg Departure - Departure Disposition: Home, Routine, Self-Care Clinical Impression: Marijuana use, NSAID long-term use Alcoholic gastritis without hemorrhage Qualifiers: Chronicity: chronic Qualified Code(s): K29.20 - Alcoholic gastritis without bleeding Condition: Good Instructions: Gastritis (ED), Diet for Stomach Ulcers and Gastritis (ED) Additional Instructions: Consume a minimum of 8-10 glasses of water or electrolyte fluid replacement drinks that include Gatorade, Powerade, Pedialyte. If unable to tolerate liquids, eat popsicles. Eat a bland diet for the next 48 hours and then slowly advance as tolerated. Take Zofran 1 tab every 4 hours as needed for nausea, vomiting. Take Pepcid twice daily. Take Carafate 4 times a day x7 days. Avoid using alcohol and NSAID including Ibuprofen, Aleve, Motrin, Advil. Stop smoking marijuana as this can increase her symptoms of nausea and vomiting and cause cyclical vomiting syndrome. Follow-up with Gastroenterology and establish care with [facility]. Referrals: Christel Pinzon MD [Medical Doctor] - As per Instructions [facility],. [Clinic] - As per Instructions Prescriptions: Famotidine [Pepcid 20 MG (*)] 20 mg PO BID #14 tab Ondansetron Odt [Zofran Odt 4 mg (*)] 4 mg PO Q4 PRN #12 tab PRN Reason: Nausea/Vomiting, Use 1st Sucralfate [Carafate 1 GM (*)] 1 gm PO ACHS 7 Days tab
[2017-07-03] MEDS ORDERED: NS 1,000 ML IV ONE (14:02)
[2017-07-03] MEDS ORDERED: MAG HYDROX/AL HYDROX/SIMETH 30 ML UDCUP PO ONE (14:02)
[2017-07-03] MEDS ORDERED: LIDOCAINE 2% VISCOUS 15 ML UDCUP PO ONE (14:02)
[2017-07-03] MEDS ORDERED: HYOSCYAMINE SULFATE 0.125 MG TAB PO ONE (14:02)
[2017-07-03] MEDS ORDERED: ONDANSETRON 4 MG/2 ML VIAL IVP ONE (14:02)
[2017-07-03] MEDS ORDERED: FAMOTIDINE 20 MG/NACL 50 ML IV ONE (14:02)
[2017-07-03 14:17] LABS: PLATELET COUNT 200 10^3/uL (150-400)
[2017-07-03] MEDS ORDERED: IOPAMIDOL (ISOVUE-300) 100 ML BTL ONE (14:31)
[2017-07-03 15:40] VITALS: BP 124/82
== END 2017-07-03 15:39 | disposition home or self-care (01) ==
DX: K29.20 Alcoholic gastritis without bleeding (principal); F12.90 Cannabis use, unspecified, uncomplicated; E86.9 Volume depletion, unspecified; J45.909 Unspecified asthma, uncomplicated; Z79.1 Long term (current) use of non-steroidal anti-inflammatories (NSAID); Z87.891 Personal history of nicotine dependence
CPT/HCPCS: 96374; J2405; Q9967